=== PATIENT | female | born 1975 | race Caucasian/White ===

== ENCOUNTER 2016-10-21 08:52 | Emergency (ER) | payer OTHER ==
[2016-10-21 09:18] LABS: COLOR YELLOW; LEUKOCYTE ESTERASE,URINE TRACE (NEGATIVE); NITRITE,URINE NEGATIVE (NEGATIVE); PH,URINE 5.5 (5.0-7.5)
[2016-10-21 09:22] VITALS: RESP 18; TEMP 98.1
[2016-10-21 09:35] LABS: RBC,URINE 0-1 /hpf (0-3); WBC,URINE 15-25 /hpf (0-3)
[2016-10-21 09:36] LABS: BACTERIA 1+ /hpf (NONE SEEN); MUCUS 1+ /lpf (NONE-1+)
[2016-10-21 09:51] LABS: % IMMATURE GRANULYOCYTES 0.3 % (0.0-1.1); ABSOLUTE IMMATURE GRANULOCYTES 0.04 10^3/uL (0.00-0.10); ADD DIFF? NO; ADD MORPH? NO; ADD SCAN? NO; ATYPICAL LYMPHOCYTE FLAG 10 (0-99); FRAGMENT RBC FLAG 0 (0-99); HEMATOCRIT 37.9 % (38.0-47.0); HEMOGLOBIN 13.2 g/dL (12.6-16.3); LEFT SHIFT FLG 0 (0-99); LIPEMIA HEMOLYSIS FLAG 90 (0-99); MEAN CELL HEMOGLOBIN 30.6 pg (27.9-34.1); MEAN CELL HEMOGLOBIN CONCENTR. 34.8 g/dL (32.4-36.7); MEAN CELL VOLUME 87.9 fL (81.5-99.8); MEAN PLATELET VOLUME 9.2 fL (8.7-11.7); PLATELET CLUMPS FLAG 10 (0-99); PLATELET COUNT 350 10^3/uL (150-400); RED BLOOD CELL COUNT 4.31 10^6/uL (4.18-5.33); RED CELL DISTRIBUTION WIDTH 12.7 % (11.5-15.2)
[2016-10-21 10:07] LABS: ANION GAP 12 mEq/L (8-16); CALCIUM 9.5 mg/dL (8.5-10.4); CARBON DIOXIDE 20 mEq/l (22-31); CHLORIDE 107 mEq/L (97-110); CREATININE 0.7 mg/dL (0.6-1.0); GLOMERULAR FILTRATION RATE > 60; GLUCOSE 89 mg/dL (70-100); POTASSIUM 4.4 mEq/L (3.5-5.2); SODIUM 139 mEq/L (134-144)
[2016-10-21] MEDS ORDERED: HYDROCODONE/APAP 5/325 TAB PO ONE (10:39)
--- NOTE | 2016-10-21 11:12 | EDPHY ---
H & P Time Seen by Provider: 10/21/16 09:15 HPI/ROS: This patient reports abrupt onset of pelvic pain during sexual intercourse last night. She explains that was not particularly rough sex but midway through she developed a deep twisting aching pain in the left pelvis that extended thereafter to the entire pelvic region. She has had ongoing pain since that time 2/10 at baseline 6/10 with movement or walking. She states that it similar to labor pains. She has never had this type of pain before other than during . Her last menstrual period was 1 week ago -normal timing. 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 This morning she is able to ambulate without significant lightheadedness. She was driven here by private vehicle by her partner. ROS: No fevers or chills. She felt well prior to intercourse last night No other constitutional symptoms. HEENT: No URI symptoms Pulmonary: No complaints Cardiovascular: As per HPI. Otherwise negative GI: No nausea since last night. No abdominal pain other than the pelvic pain mention. No upper belly pain. : As per HPI. No vaginal bleeding. No vaginal discharge. She has not noticed dysuria. Musculoskeletal: No back pain Endocrine: No complaints Integumentary: No skin rash or genital lesions. Neuro: No complaints 10 point ROS is otherwise negative. Past Medical/Surgical History: . Otherwise healthy. 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 No drug use. Smoking Status: Never smoked Physical Exam: General Appearance: pleasant 41-year-old female Alert, no distress. Eyes: Pupils equal and round no pallor or injection. ENT, Mouth: Mucous membranes moist. Respiratory: There are no retractions, lungs are clear to auscultation. Cardiovascular: Regular rate and rhythm. Gastrointestinal: Abdomen is soft and nontender, no masses, bowel sounds normal. : No genital lesions. External genitalia appears normal. On speculum exam there is a small amount of white discharge sent for cultures and chlamydia/GC. Her cervix is mildly erythematous. The patient is unwilling to have a bimanual exam but evidence of cervical motion tenderness in terms of movement with the speculum is present. Neurological: GCS 15. No focal deficits. Skin: Warm and dry, no rashes. Extremities are symmetrical, full range of motion. Psychiatric: Mood and affect normal DIFFERENTIAL DIAGNOSIS: After history and physical exam differential diagnosis was considered for ruptured ovarian cysts, air insufflation to the fallopian tube during intercourse, bacterial vaginitis, doubt PID Constitutional: Initial Vital Signs Temperature (C) 36.7 C 10/21/16 09:05 Heart Rate 75 10/21/16 09:05 Respiratory Rate 18 10/21/16 09:05 Blood Pressure 116/66 10/21/16 09:05 O2 Sat (%) 97 10/21/16 09:05 O2 Delivery Mode Room Air Allergies/Adverse Reactions: No Known Allergies Allergy (Unverified 10/21/16 09:19) Home Medications: Medication Instructions Recorded Bcp 10/21/16 Cephalexin [Keflex (*)] 500 mg PO TID #21 cap 10/21/16 Hydrocodone/APAP 5/325 [[place] 1 - 2 tab PO Q4PRN PRN #18 tab 10/21/16 5/325 (*)] Ibuprofen [Motrin (*)] 600 mg PO Q6 PRN #30 tab 10/21/16 MDM/Departure - MDM Imaging Results: Imaging Impressions Pelvic/Renal Ultrasound 10/21/16 09:40 Impression: 1. Complex cystic lesion left ovary measuring 3.7 x 3.4 x 2.6 cm probably representing a partially ruptured hemorrhagic cyst with a small amount of free fluid in both sides of the pelvis. Recommend follow up ultrasound imaging in 8- 12 weeks. 2. No ovarian torsion. 3. Normal uterus. Findings and recommendations discussed with Emergency Department physician, Gualberto Jaffe, at 1034 hours on October 21, 2016. Final report concurs with initial preliminary interpretation. Imaging: I viewed and interpreted images myself Medications Given: Discontinued Medications Hydrocodone Bitart/Acetaminophen ([place] 5/325) 1 tab PO EDNOW ONE Stop: 10/21/16 10:40 Last Admin: 10/21/16 10:44 Dose: 1 tab ED Course/Re-evaluation: hemorrhagic cyst on ultrasound consistent with history and physical exam. I counseled patient regarding this. She initially declined analgesics other than the ibuprofen that she took at home but then accepted Vicodin prior to her pelvic exam. I discussed this case with Dr. Mueller, water sander on-call. She agrees with treatment plan. Patient will follow up with Dr. Mueller. I advised her to have pelvic rest until she feels improved. Review of her labs reveals mild leukocytosis. No anemia, Urinalysis consistent with cystitis. I counseled regarding this. test is negative. Discussion: I did doubt cervicitis given mild findings on exam but this is still a possibility with chlamydia and GC PCR pending. Will cover her cystitis with Keflex. - Depart Disposition: Home, Routine, Self-Care Clinical Impression: Hemorrhagic cyst of left ovary, Cystitis Condition: Good Instructions: Urinary Tract Infection in Women (ED), Ruptured Ovarian Cyst (ED) Additional Instructions: Diagnosis: 1. hemorrhagic ovarian cyst 2. bladder infection Plan: Drink plenty fluids Keflex antibiotic Ibuprofen and Tylenol or Vicodin if needed for pain. No driving, alcohol or come Vicodin. Follow up with Dr. Ami KING for further evaluation Return to the emergency department for any significant worsening despite the treatment plan Prescriptions: Cephalexin [Keflex (*)] 500 mg PO TID #21 cap Hydrocodone/APAP 5/325 [[place] 5/325 (*)] 1 - 2 tab PO Q4PRN PRN #18 tab PRN Reason: Pain Ibuprofen [Motrin (*)] 600 mg PO Q6 PRN #30 tab PRN Reason: Pain Referrals: Jaylyn Mar MD [Primary Care Provider] - As per Instructions Kristy Mueller DO [Doctor of Osteopathy] - As per Instructions
[2016-10-21 11:27] VITALS: BP 96/58; PULSE 79; O2SAT 98
[2016-10-22 13:12] LABS: CHLAMYDIA AMPLIFICATION GENPRB NEGATIVE (NEGATIVE)
== END 2016-10-21 11:27 | disposition home or self-care (01) ==
LOC: CED 08:52
DX: N83.202 Unspecified ovarian cyst, left side (principal); N30.90 Cystitis, unspecified without hematuria; B95.1 Streptococcus, group B, as the cause of diseases classified elsewhere
CPT/HCPCS: 76856-PO; 80048-PO; 81003-PO; 81015-PO; 81025-PO; 84703-PO; 85025-PO

== ENCOUNTER → 2016-10-24 | Outpatient (CLI) | payer OTHER | LOC: FIMAGING 10:04 | PROVIDERS: ATTEND Internal Medicine | DX: Z12.31 Encounter for screening mammogram for malignant neoplasm of breast (principal) | CPT/HCPCS: G0202 ==

== ENCOUNTER → 2017-12-03 | Outpatient (CLI) | payer OTHER | LOC: FIMAGING 12:53 | PROVIDERS: ATTEND Internal Medicine | DX: Z12.31 Encounter for screening mammogram for malignant neoplasm of breast (principal) ==

== ENCOUNTER → 2018-08-11 | Outpatient (CLI) | payer OTHER | LOC: FIMAGING 08:27 ==